=== PATIENT | female | born 1965 | race Asian ===

== ENCOUNTER 2018-07-13 19:22 | Emergency (ER) | payer BC ==
[~2018-07-13] VITALS: Ht 172.7 cm; Wt 75.7 kg
[2018-07-13 19:29] VITALS: Ht 172.7 cm; Wt 75.7 kg
[2018-07-13 21:13] VITALS: BP 128/76
== END 2018-07-13 21:13 | disposition home or self-care (01) ==
LOC: ED 19:22
DX: T78.40XA Allergy, unspecified, initial encounter (principal); T78.2XXA Anaphylactic shock, unspecified, initial encounter; X58.XXXA Exposure to other specified factors, initial encounter; Z88.0 Allergy status to penicillin
CPT/HCPCS: J0171; J1100